=== PATIENT | male | born 1995 | race Caucasian/White ===

== ENCOUNTER 2020-02-27 18:46 | Emergency (ER) | payer OTHER ==
[~2020-02-27] VITALS: Ht 172.7 cm; Wt 72.6 kg
[~2020-02-27 18:46] MED LIST: IBUP800 PO; Norco 10-325 T1 EACH PO; PRED10 PO; TRIA80TC TOP
== END 2020-02-27 19:57 | disposition home or self-care (01) ==
LOC: ER 18:46
DX: S09.90XA Unspecified injury of head, initial encounter (principal); Z23 Encounter for immunization; Z79.899 Other long term (current) drug therapy; V89.9XXA Person injured in unspecified vehicle accident, initial encounter; Y92.410 Unspecified street and highway as the place of occurrence of the external cause
CPT/HCPCS: 12001; 70450; 90471; 90714; 99283-25